=== PATIENT | male | born 2005 | race Caucasian/White ===

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

== ENCOUNTER 2023-01-28 15:06 | Emergency (ER) | payer OTHER ==
[2023-01-28 15:15] VITALS: BP 147/75
--- NOTE | 2023-01-28 15:29 | ED Physician Documentation ---
PD HPI HEENT - Stated complaint Stated Complaint: THROAT SWELLING/PX - Chief complaint Chief Complaint: Heent - History obtained from History obtained from: Patient - Additional information Additional information: 3 days of sore throat with sores on the throat. No runny nose or cough. No fevers. PD PAST MEDICAL HISTORY - Past Surgical History Past Surgical History: No - Present Medications Home Medications: Ambulatory Orders Medication Instructions Recorded Confirmed predniSONE [Deltasone] 60 mg PO DAILY 5 Days #15 tablet 01/28/23 - Allergies Allergies/Adverse Reactions: Allergies Allergy/AdvReac Type Severity Reaction Status Date / Time No Known Drug Allergies Allergy Verified 01/28/23 15:15 - Social History Does the pt smoke?: No Smoking Status: Never smoker Does the pt drink ETOH?: No Does the pt have substance abuse?: No - Immunizations Immunizations are current?: Yes - POLST Patient has POLST: No PD ED PE NORMAL - Vitals Vital signs reviewed: Yes - General General: Alert and oriented X 3, No acute distress - HEENT HEENT: PERRL, EOMI, Other (Markedly red tonsillar pillars with palatal petechia and ulcers. No swelling or trismus. No exudates.) - Neck Neck: No adenopathy - Derm Derm: No rash - Neuro Neuro: Alert and oriented X 3, Normal speech Results - Vitals Vitals: Vital Signs - 24 hr 01/28/23 15:12 Temperature 37 C Heart Rate 69 Respiratory 16 Rate Blood Pressure 147/75 H O2 Saturation 100 Oxygen O2 Source Room air - Labs Labs: Laboratory Tests 01/28/23 15:15 Group A Strep Rapid Negative Departure - Departure Disposition: 01 Home, Self Care Clinical Impression: Viral pharyngitis Condition: Good Record reviewed to determine appropriate education?: Yes Instructions: ED Pharyngitis Viral Report Pending Prescriptions: predniSONE [Deltasone] 60 mg PO DAILY 5 Days #15 tablet Comments: Your rapid strep test is negative. We will perform a throat culture and if the bacterial isolate is found we will call you over the next couple of days. At this point though this is likely viral and the steroid should help with the inflammation. You received the first dose here so you do not need to fill the prescription until tomorrow. In addition you can take Tylenol and/or ibuprofen as needed for pain. Drink plenty of fluids but okay if you do not feel like eating for the next couple of days due to the pain. You can use [id number] relief for that as well such as Chloraseptic and cough drops.
[2023-01-28 15:34] LABS: RAPID STREP SCREEN Negative (Negative)
[2023-01-28] MEDS ORDERED: predniSONE 20 MG TABLET PO STA (15:38)
== END 2023-01-28 15:46 | disposition home or self-care (01) ==
LOC: ED 15:06
DX: J02.8 Acute pharyngitis due to other specified organisms (principal)
CPT/HCPCS: 87070; 87430; 99283; J7512

== ENCOUNTER 2023-02-22 12:38 | Emergency (ER) | payer OTHER ==
[2023-02-22 12:48] VITALS: BP 133/64
--- NOTE | 2023-02-22 13:27 | ED Physician Documentation ---
PD HPI HEENT - Stated complaint Stated Complaint: CONGESTION,COUGH - Chief complaint Chief Complaint: Resp - History obtained from History obtained from: Patient - Additional information Additional information: The patient comes to the emergency department chief complaint of nasal congestion and cough for the last 2 days. He has also had some tightness in his chest and has been coughing up a little bit of green phlegm. He states he was exposed to bronchitis a week ago and is concerned he has the same thing. Patient denies fevers. No shortness of breath. No underlying lung disease. He is not a smoker. The patient denies any abdominal symptoms. He is otherwise healthy. No other complaints at this time. PD PAST MEDICAL HISTORY - Past Medical History Past Medical History: No - Past Surgical History Past Surgical History: No - Present Medications Home Medications: Ambulatory Orders Medication Instructions Recorded Confirmed predniSONE [Deltasone] 60 mg PO DAILY 3 Days #9 tablet 02/22/23 - Allergies Allergies/Adverse Reactions: Allergies Allergy/AdvReac Type Severity Reaction Status Date / Time No Known Drug Allergies Allergy Verified 02/22/23 12:45 - Social History Does the pt smoke?: No Smoking Status: Never smoker Does the pt drink ETOH?: No Does the pt have substance abuse?: No - Immunizations Immunizations are current?: Yes - POLST Patient has POLST: No PD ED PE NORMAL - Vitals Vital signs reviewed: Yes - General General: Alert and oriented X 3, No acute distress, Well developed/nourished - HEENT HEENT: Atraumatic, PERRL, EOMI, Moist mucous membranes - Neck Neck: Supple, no meningeal sign - Cardiac Cardiac: RRR, No murmur, Strong equal pulses - Respiratory Respiratory: No respiratory distress, Clear bilaterally - Abdomen Abdomen: Soft, Non tender, Non distended - Derm Derm: Normal color, Warm and dry, No rash - Extremities Extremities: No deformity, No edema - Neuro Neuro: Alert and oriented X 3 - Psych Psych: Normal mood, Normal affect Results - Vitals Vitals: Vital Signs - 24 hr 02/22/23 12:42 Temperature 36.2 C L Heart Rate 75 Respiratory 16 Rate Blood Pressure 133/64 H O2 Saturation 100 Oxygen O2 Source Room air PD Medical Decision Making - ED course Complexity details: considered differential, d/w patient ED course: I discussed with the patient that his symptoms are most indicative of a viral illness and at this point, there is no indication for antibiotics. He does have a sense of airway tightness and may be helpful for him to be on a short course of steroids. Otherwise, we have discussed the this is most likely a viral illness which will be self-limited. We have discussed the usual indications for follow-up and return. Departure - Departure Disposition: 01 Home, Self Care Clinical Impression: Viral upper respiratory infection Condition: Stable Instructions: ED Viral Syndrome Prescriptions: predniSONE [Deltasone] 60 mg PO DAILY 3 Days #9 tablet Comments: Your symptoms at this point are not indicative of bacterial bronchitis, and as such, antibiotics are not indicated at this time. Most likely have the viral illness which will pass on its own, given the appropriate amount of time. Usually, these illnesses last anywhere from several days to a week or so. We will start you on a course of steroids to help open your airways a bit. Otherwise, drink plenty of fluids get plenty of rest. Please follow-up with your primary doctor as needed. Your prescription has been electronically transmitted to the [facility] pharmacy in [place] at your request.
== END 2023-02-22 13:34 | disposition home or self-care (01) ==
LOC: ED 12:38
DX: J06.9 Acute upper respiratory infection, unspecified (principal)
CPT/HCPCS: 99282; 99283

== ENCOUNTER 2023-03-06 15:15 | Outpatient (CLI) | payer OTHER ==
[2023-03-06 17:51] LABS: ALBUMIN 4.7 g/dL (3.2-5.5); ALBUMIN/GLOBULIN RATIO 1.5 (1.0-2.2); BILIRUBIN,TOTAL 0.8 mg/dL (0.2-1.0); CALCIUM 9.5 mg/dL (8.5-10.3); POTASSIUM 3.4 mmol/L (3.5-5.0); TOTAL PROTEIN 7.8 g/dL (6.7-8.2)
[2023-03-06 18:13] LABS: BASOPHILS % (AUTO) 0.2 %; EOSINOPHILS # (AUTO) 0.3 10^3/uL (0.0-0.7); EOSINOPHILS % (AUTO) 2.2 %; HCT - HEMATOCRIT 45.5 % (42.0-52.0); HGB - HEMOGLOBIN 15.5 g/dL (14.0-18.0); MEAN CORPUSCULAR HGB CONC 34.1 g/dL (32.0-36.0); MEAN CORPUSCULAR VOLUME 85.2 fL (80.0-94.0); MEAN PLATELET VOLUME 10.5 fL (7.4-11.4); MONOCYTES # (AUTO) 0.6 10^3/uL (0.0-1.0); MONOCYTES % (AUTO) 5.1 %; NEUTROPHILS # (AUTO) 9.5 10^3/uL (1.5-6.6); NEUTROPHILS % (AUTO) 76.1 %; PLT - PLATELET COUNT 219 10^3/uL (130-450); RED BLOOD COUNT 5.34 10^6/uL (4.70-6.10); RED CELL DISTRIBUTION WIDTH 12.6 % (12.0-15.0); WHITE BLOOD COUNT 12.4 x10^3/uL (4.8-10.8)
[2023-03-06 18:20] LABS: INFECTIOUS MONONUCLEOSIS NEGATIVE (Negative)
[2023-03-07 04:09] LABS: RPR Non Reactive (Non Reactive)
[2023-03-07 05:13] LABS: HSV 2 IGG TYPE SPEC <0.91 index (0.00-0.90)
[2023-03-07 22:04] LABS: CHLAMYDIA TRACHOMATIS DNA NEGATIVE (NEGATIVE); NEISSERIA GONORRHOEAE DNA NEGATIVE (NEGATIVE); TRICHOMONAS VAGINALIS DNA NEGATIVE (NEGATIVE)
[2023-03-09 14:09] LABS: HIV SCREEN 4TH GENERATION Non Reactive (Non Reactive)
== END 2023-03-06 15:30 | disposition home or self-care (01) ==
LOC: LAB.N 15:15
PROVIDERS: ATTEND Specialist
DX: K13.79 Other lesions of oral mucosa (principal); Z11.3 Encounter for screening for infections with a predominantly sexual mode of transmission
CPT/HCPCS: 36415; 80053; 85025; 86308; 86592; 86696; 87389; 87491; 87591; 87661

== ENCOUNTER 2023-05-07 22:15 | Emergency (ER) | payer OTHER ==
--- OUTSIDE RECORDS SUMMARY | 2023-05-07 22:40 | EXTERNAL MEDICAL SUMMARY RPT | Continuity of Care Document ---
Author Name Unknown Address [address] [place] [address] Phone Organization [facility] Address [address] [place] [address] Phone Care Team Providers Care Slab Installer Name Role Phone Unavailable Unavailable Unavailable Owen Rivet Machine Operator,Salon Professional, George Unavailable Unavailabl e Cae Rivet Machine Operator Enp, Eileen Unavailable Unavail able James Mariano, Susi Unavailable Unavailable [place] Nurse [facility], Tailynn Unavailable Unavailabl e Medications date description facility 2023-03-06 00:00 No Known Medications All 2023-03-06 00:00 No Known Medications All 2023-03-06 00:00 No Known Medications All 2023-03-06 00:00 No Known Medications All Problems date description facility 2023-03-06 00:00 Sore mouth All 2023-03-06 00:00 Sore mouth All 2023-03-06 00:00 Sore mouth All 2023-03-06 00:00 Sore mouth All 2023-03-06 00:00 Venereal disease screening All 2023-03-06 00:00 Venereal disease screening All 2023-03-06 00:00 Venereal disease screening All 2023-03-06 00:00 Venereal disease screening All 2023-03-06 00:00 Other and unspecified diseases of the oral soft tissues All 2023-03-06 00:00 Other and unspecified diseases of the oral soft tissues All 2023-03-06 00:00 Other and unspecified diseases of the oral soft tissues All 2023-03-06 00:00 Other and unspecified diseases of the oral soft tissues All 2023-03-06 00:00 Other lesions of oral mucosa Al l 2023-03-06 00:00 Other lesions of oral mucosa Al l 2023-03-06 00:00 Other lesions of oral mucosa Al l 2023-03-06 00:00 Other lesions of oral mucosa Al l 2023-03-06 00:00 Screening examination for vener eal disease All 2023-03-06 00:00 Screening examination for vener eal disease All 2023-03-06 00:00 Screening examination for vener eal disease All 2023-03-06 00:00 Screening examination for vener eal disease All 2023-03-06 00:00 Encounter for screen ing for infections with a predominantly sexual mode of transmission All 2023-03-06 00:00 Encounter for screen ing for infections with a predominantly sexual mode of transmission All 2023-03-06 00:00 Encounter for screen ing for infections with a predominantly sexual mode of transmission All 2023-03-06 00:00 Encounter for screen ing for infections with a predominantly sexual mode of transmission All Procedures date description facility 2023-03-06 00:00 Visit Code Hold All 2023-03-06 00:00 Visit Code Hold All 2023-03-06 00:00 Visit Code Hold All 2023-03-06 00:00 Visit Code Hold All 2023-03-06 00:00 COMPREHENSIVE METABOLIC PANEL A 2023-03-06 00:00 COMPREHENSIVE METABOLIC PANEL A 2023-03-06 00:00 COMPREHENSIVE METABOLIC PANEL A 2023-03-06 00:00 COMPREHENSIVE METABOLIC PANEL A 2023-03-06 00:00 CBC W/Diff/Plt All 2023-03-06 00:00 CBC W/Diff/Plt All 2023-03-06 00:00 CBC W/Diff/Plt All 2023-03-06 00:00 CBC W/Diff/Plt All 2023-03-06 00:00 MONO TEST All 2023-03-06 00:00 MONO TEST All 2023-03-06 00:00 MONO TEST All 2023-03-06 00:00 MONO TEST All 2023-03-06 00:00 Herpes Simplex Virus (HSV) 1&2 IGG w/Rflx to Supplemental HSV2 All 2023-03-06 00:00 Herpes Simplex Virus (HSV) 1&2 IGG w/Rflx to Supplemental HSV2 All 2023-03-06 00:00 Herpes Simplex Virus (HSV) 1&2 IGG w/Rflx to Supplemental HSV2 All 2023-03-06 00:00 Herpes Simplex Virus (HSV) 1&2 IGG w/Rflx to Supplemental HSV2 All 2023-03-06 00:00 RPR, Serum with Reflex All 2023-03-06 00:00 RPR, Serum with Reflex All 2023-03-06 00:00 RPR, Serum with Reflex All 2023-03-06 00:00 RPR, Serum with Reflex All 2023-03-06 00:00 HIV 1&2 with reflex All 2023-03-06 00:00 HIV 1&2 with reflex All 2023-03-06 00:00 HIV 1&2 with reflex All 2023-03-06 00:00 HIV 1&2 with reflex All 2023-03-06 00:00 CHLAM, NEISSERIA, TRICH DNA All 2023-03-06 00:00 CHLAM, NEISSERIA, TRICH DNA All 2023-03-06 00:00 CHLAM, NEISSERIA, TRICH DNA All 2023-03-06 00:00 CHLAM, NEISSERIA, TRICH DNA All Results/Labs test date facility value unit notes Social History date description facility 2023-03-06 00:00 Unknown if ever smoked All 2023-03-07 00:00 Unknown if ever smoked All 2023-03-07 00:00 Unknown if ever smoked All 2023-03-07 00:00 Unknown if ever smoked All 2023-03-08 00:00 Unknown if ever smoked All 2023-03-09 00:00 Unknown if ever smoked All Vital Signs date measurement value units 2023-03-06 00:00 BMI 20.49 kg/m2 2023-03-06 00:00 BP_diastolic 84 mmHg 2023-03-06 00:00 BP_systolic 147 mmHg 2023-03-06 00:00 heart_rate 56 /min 2023-03-06 00:00 height_metric 200.66 cm 2023-03-06 00:00 height_standard 79 in 2023-03-06 00:00 respiration_rate 20 /min 2023-03-06 00:00 temperature_metric 36.83 C 2023-03-06 00:00 temperature_standard 98.3 F 2023-03-06 00:00 weight_metric 82.19 kg 2023-03-06 00:00 weight_standard 181.2 lb
[2023-05-07 22:44] VITALS: BP 145/91; O2SAT 100
== END 2023-05-07 22:41 | disposition left against medical advice (07) ==
LOC: ED 22:15
DX: Z53.21 Procedure and treatment not carried out due to patient leaving prior to being seen by health care provider (principal)

== ENCOUNTER 2023-09-12 16:57 | Emergency (ER) | payer OTHER ==
[2023-09-12 17:31] LABS: BASOPHILS # (AUTO) 0.1 10^3/uL (0.0-0.1); BASOPHILS % (AUTO) 0.6 %; EOSINOPHILS # (AUTO) 0.6 10^3/uL (0.0-0.7); EOSINOPHILS % (AUTO) 7.1 %; HCT - HEMATOCRIT 47.9 % (42.0-52.0); HGB - HEMOGLOBIN 16.3 g/dL (14.0-18.0); LYMPHOCYTES # (AUTO) 2.1 10^3/uL (1.5-3.5); LYMPHOCYTES % (AUTO) 26.6 %; MEAN CORPUSCULAR HEMOGLOBIN 28.7 pg (27.0-31.0); MEAN CORPUSCULAR VOLUME 84.5 fL (80.0-94.0); MEAN PLATELET VOLUME 9.6 fL (7.4-11.4); MONOCYTES # (AUTO) 0.5 10^3/uL (0.0-1.0); MONOCYTES % (AUTO) 6.3 %; NEUTROPHILS # (AUTO) 4.6 10^3/uL (1.5-6.6); NEUTROPHILS % (AUTO) 59.3 %; PLT - PLATELET COUNT 221 10^3/uL (130-450); RED BLOOD COUNT 5.67 10^6/uL (4.70-6.10); RED CELL DISTRIBUTION WIDTH 12.5 % (12.0-15.0); WHITE BLOOD COUNT 7.8 x10^3/uL (4.8-10.8)
[2023-09-12 17:43] LABS: ALBUMIN 5.2 g/dL (3.2-5.5); ALBUMIN/GLOBULIN RATIO 1.8 (1.0-2.2); BILIRUBIN,TOTAL 0.5 mg/dL (0.2-1.0); CALCIUM 10.4 mg/dL (8.5-10.3); POTASSIUM 3.9 mmol/L (3.5-4.5); TOTAL PROTEIN 8.1 g/dL (6.4-8.9)
--- NOTE | 2023-09-12 18:33 | ED Physician Documentation ---
History of Present Illness - Stated complaint Stated Complaint: ABD PX - Chief complaint Chief Complaint: Abd Pain - History obtained from History obtained from: Patient - History of Present Illness Timing: How many days ago (2) Pain level max: 6 Pain level now: 5 - Additonal information Additional information: 17-year-old male presents to the emergency department left upper abdominal wall pain. Started after weightlifting a few days ago. Worsens with movement and palpation. Does not notice any bulges. No vomiting. No diarrhea. No fevers. No chills. Otherwise no injuries. Review of Systems Constitutional: denies: Fever, Chills Respiratory: denies: Cough GI: denies: Vomiting, Diarrhea Skin: denies: Rash PD PAST MEDICAL HISTORY - Past Medical History Past Medical History: No - Past Surgical History Past Surgical History: No - Present Medications Home Medications: Ambulatory Orders Medication Instructions Recorded Confirmed predniSONE [Deltasone] 60 mg PO DAILY 3 Days #9 tablet 02/22/23 - Allergies Allergies/Adverse Reactions: Allergies Allergy/AdvReac Type Severity Reaction Status Date / Time No Known Drug Allergies Allergy Verified 09/12/23 17:06 - Social History Does the pt smoke?: No Smoking Status: Never smoker Does the pt drink ETOH?: No Does the pt have substance abuse?: No - Immunizations Immunizations are current?: Yes - POLST Patient has POLST: No PD ED PE NORMAL - Vitals Vital signs reviewed: Yes - General General: Alert and oriented X 3, No acute distress - Cardiac Cardiac: RRR - Respiratory Respiratory: No respiratory distress - Abdomen Abdomen: Other (Abdomen is soft, nontender nondistended other than some tenderness along the upper left abdominal wall near the attachment to the rib cartilage. There is no crepitus. There is no ecchymosis. There is no palpable hernia. No bulges.) - Back Back: No CVA TTP, No spinal TTP - Derm Derm: Warm and dry - Neuro Neuro: Alert and oriented X 3 Results - Vitals Vitals: Vital Signs - 24 hr 09/12/23 09/12/23 17:03 18:49 Temperature 36.3 C L Heart Rate 62 68 Respiratory 16 18 Rate Blood Pressure 129/99 H 152/77 H O2 Saturation 100 99 Oxygen O2 Source Room air - Labs Labs: Laboratory Tests 09/12/23 09/12/23 17:25 17:25 WBC 7.8 RBC 5.67 Hgb 16.3 Hct 47.9 MCV 84.5 MCH 28.7 MCHC 34.0 RDW 12.5 Plt Count 221 MPV 9.6 Neut # (Auto) 4.6 Lymph # (Auto) 2.1 Mcdonald # (Auto) 0.5 Eos # (Auto) 0.6 Baso # (Auto) 0.1 Absolute Nucleated RBC 0.00 Nucleated RBC % 0.0 Sodium 139 Potassium 3.9 Chloride 101 Carbon Dioxide 32 Anion Gap 6.0 BUN 18 Creatinine 1.0 Estimated GFR (MDRD) 96 Glucose 92 Calcium 10.4 H Total Bilirubin 0.5 AST 29 ALT 32 Alkaline Phosphatase 77 Total Protein 8.1 Albumin 5.2 Globulin 2.9 Albumin/Globulin Ratio 1.8 Lipase 28 PD Medical Decision Making - ED course Complexity details: reviewed results, considered differential, d/w patient ED course: No significant lab abnormalities. Patient's injury history and examination are consistent with a muscle strain. There is no evidence of hernia clinically. We will continue supportive care. Can utilize Motrin or Tylenol as needed for pain at home. Can utilize ice packs and heating pads as well. Patient counseled regarding signs and symptoms for which I believe and urgent re- evaluation would be necessary. Patient with good understanding of and agreement to plan and is comfortable going home at this time This document was made in part using voice recognition software. While efforts are made to proofread this document, sound alike and grammatical errors may occur. Departure - Departure Disposition: 01 Home, Self Care Clinical Impression: Abdominal wall strain Qualifiers: Encounter type: initial encounter Qualified Code(s): S39.011A - Strain of muscle, fascia and tendon of abdomen, initial encounter Condition: Good Instructions: ED Strain Abdominal Muscle Comments: You appear to have an abdominal wall strain. There is no sign of hernia. Your blood work is normal. Continue Motrin and Tylenol as needed for pain. Limit lifting until this has healed. Please follow-up with your doctor for further care as needed. Please return if you worsen. Forms: PCP List Discharge Date/Time: 09/12/23 18:49
[2023-09-12 18:51] VITALS: BP 152/77; O2SAT 99
== END 2023-09-12 18:49 | disposition home or self-care (01) ==
LOC: ED 16:57
DX: S39.011A Strain of muscle, fascia and tendon of abdomen, initial encounter (principal); X58.XXXA Exposure to other specified factors, initial encounter; Y93.B9 Activity, other involving muscle strengthening exercises
CPT/HCPCS: 36415; 80053; 83690; 85025; 99283

== ENCOUNTER 2024-04-01 14:31 | Emergency (ER) | payer OTHER ==
[2024-04-01 14:57] VITALS: BP 135/58; O2SAT 100
--- NOTE | 2024-04-01 15:33 | ED Physician Documentation ---
History of Present Illness - Stated complaint Stated Complaint: LT SIDE RIB PX - Chief complaint Chief Complaint: General - History obtained from History obtained from: Patient - History of Present Illness Timing: How many weeks ago (2) Pain level max: 5 Pain level now: 5 - Additonal information Additional information: 18 year old male with L sided rib pain x 2 weeks. started after bench pressing. Worse with movement and better with rest. No fevers. No cough. No congestion. No chills. No swelling. No crepitus. No deformity. Review of Systems Constitutional: denies: Fever Nose: denies: Rhinorrhea / runny nose, Congestion Cardiac: denies: Palpitations Respiratory: denies: Dyspnea, Cough, Wheezing GI: denies: Abdominal Pain, Nausea, Vomiting, Diarrhea PD PAST MEDICAL HISTORY - Past Surgical History Past Surgical History: No - Present Medications Home Medications: Ambulatory Orders Medication Instructions Recorded Confirmed No Known Home Medications 04/01/24 04/01/24 - Allergies Allergies/Adverse Reactions: Allergies Allergy/AdvReac Type Severity Reaction Status Date / Time No Known Drug Allergies Allergy Verified 04/01/24 16:00 - Social History Does the pt smoke?: No Smoking Status: Never smoker Does the pt drink ETOH?: No Does the pt have substance abuse?: No - Immunizations Immunizations are current?: Yes - POLST Patient has POLST: No PD ED PE NORMAL - Vitals Vital signs reviewed: Yes - General General: Alert and oriented X 3, No acute distress - HEENT HEENT: Moist mucous membranes - Neck Neck: Supple, no meningeal sign - Cardiac Cardiac: RRR, Strong equal pulses - Respiratory Respiratory: No respiratory distress, Clear bilaterally, Other (Tender to palpation over the left anterior chest wall, approximately ribs 7 and 8, near the costochondral junction. No crepitus. No ecchymosis.) - Abdomen Abdomen: Soft, Non tender, Non distended - Derm Derm: Warm and dry - Neuro Neuro: Alert and oriented X 3 - Psych Psych: Normal mood, Normal affect Results - Vitals Vitals: Vital Signs - 24 hr 04/01/24 14:46 Temperature 36.8 C Heart Rate 68 Respiratory 16 Rate Blood Pressure 135/58 H O2 Saturation 100 Oxygen O2 Source Room air - Rads (name of study) Left rib with chest x-ray Relevant Findings:: Final report received, See rad report PD Medical Decision Making - ED course Complexity details: reviewed results, re-evaluated patient, considered differential, d/w patient ED course: 18-year-old male presents to the emergency department with left anterior rib pain ongoing for the past 2 weeks. Appears to be consistent with an intercostal muscle injury. Possible costochondritis. No evidence of PE. No leg swelling. No recent travel. Patient is very well-appearing, nontoxic. No acute findings on x-ray. Will continue supportive care and have him follow-up with his doctor as needed. Patient counseled regarding signs and symptoms for which I believe and urgent re-evaluation would be necessary. Patient with good understanding of and agreement to plan and is comfortable going home at this time This document was made in part using voice recognition software. While efforts are made to proofread this document, sound alike and grammatical errors may occur. Departure - Departure Disposition: 01 Home, Self Care Clinical Impression: Intercostal muscle strain Qualifiers: Encounter type: initial encounter Qualified Code(s): S29.011A - Strain of muscle and tendon of front wall of thorax, initial encounter Condition: Good Instructions: ED Chest Pain Costochondritis Follow-Up: your,doctor as needed [Other] Comments: You appear to have a strain of your intercostal muscle on your left chest wall. Please follow-up with your doctor as needed for further care. You can use Motrin, Tylenol or Aleve as needed for pain. This usually takes several weeks to heal. Return if you worsen. Your x-ray is normal today. Forms: PCP List Discharge Date/Time: 04/01/24 16:10
--- NOTE | 2024-04-01 15:57 | XRAY Report ---
PROCEDURE: Ribs w/PA Chest 3+V LT INDICATIONS: L ant rib pain TECHNIQUE: 2 views of the ribs were acquired, along with a single view chest. COMPARISON: None. FINDINGS: Surgical changes and devices: None. Bones and chest wall: No fractures or dislocations. No suspicious bony lesions. Overlying soft tis sues appear unremarkable. Lungs and pleura: No pleural effusions or pneumothorax. Lungs appear clear. Mediastinum: Mediastinal contours appear normal. Heart size is normal. IMPRESSION: No visualized acute fracture or dislocation. However, occult injury cannot be excluded. Recommend jarvis rt interval imaging follow-up in 7-10 days as clinically indicated for additional evaluation. Reviewed by: Laura Jacques MD on 04/01/2024 3:56 PM PDT Approved by: Laura Jacques MD on 04/01/2024 3:56 PM PDT Station ID: [id number]
== END 2024-04-01 16:10 | disposition home or self-care (01) ==
LOC: ED 14:31
DX: S29.011A Strain of muscle and tendon of front wall of thorax, initial encounter (principal); X58.XXXA Exposure to other specified factors, initial encounter; Y93.B9 Activity, other involving muscle strengthening exercises
CPT/HCPCS: 99283